=== PATIENT | female | born 1970 | race Caucasian/White ===

== ENCOUNTER 2016-08-28 10:22 | Emergency (ER) | payer MEDICAID ==
[~2016-08-28] VITALS: Ht 170.2 cm; Wt 80.3 kg
[2016-08-28 10:30] VITALS: BP_SYST 16; BP_SYST 160
[2016-08-28 12:10] VITALS: BP_SYST 160
== END 2016-08-28 12:10 | disposition home or self-care (01) ==
LOC: SED 10:22
DX: J32.9 Chronic sinusitis, unspecified (principal); J06.9 Acute upper respiratory infection, unspecified; R03.0 Elevated blood-pressure reading, without diagnosis of hypertension
CPT/HCPCS: 99283

== ENCOUNTER 2018-07-25 21:51 | Emergency (ER) | payer MEDICAID ==
[~2018-07-25] VITALS: Ht 165.1 cm; Wt 81.6 kg
[2018-07-25 22:04] VITALS: BP_SYST 117
[2018-07-25 22:44] VITALS: BP_SYST 117
== END 2018-07-25 22:44 | disposition home or self-care (01) ==
LOC: SED 21:51
DX: M54.5 Low back pain (principal)
CPT/HCPCS: 99282